=== PATIENT | female | born 1955 | race Caucasian/White ===

== ENCOUNTER 2020-01-02 07:01 | Day surgery (SDC) | payer MEDICARE ==
[2019-12-26 10:59] LABS: BASOPHILS % (AUTO) 0.5 % (0-1); EOSINOPHILS # (AUTO) 0.1 X10'3 (0-0.9); EOSINOPHILS % (AUTO) 1.9 % (0-6); LYMPHOCYTES # (AUTO) 1.7 X10'3 (1.1-4.8); LYMPHOCYTES % (AUTO) 22.5 % (21-51); MEAN CORPUSCULAR HEMOGLOBIN 27.7 PG (27.0-31.0); MEAN CORPUSCULAR HGB CONC 33.6 g/dL (33.0-36.5); MEAN CORPUSCULAR VOLUME 82.5 FL (78-98); MEAN PLATELET VOLUME 7.6 FL (7.4-10.4); MONOCYTES # (AUTO) 0.4 X10'3 (0-0.9); MONOCYTES % (AUTO) 5.3 % (2-12); NEUTROPHILS # (AUTO) 5.3 X10'3 (1.8-7.7); NEUTROPHILS % (AUTO) 69.8 % (42-75); PRE OP HEMATOCRIT 37.5 % (35.0-45.0); PRE OP HEMOGLOBIN 12.6 g/dL (12.0-16.0); PRE OP PLATELET COUNT 284 X10'3 (140-440); RED BLOOD COUNT 4.54 X10'6 (4.20-5.60); RED CELL DISTRIBUTION WIDTH 13.5 % (11.5-14.5)
[2019-12-26 11:16] LABS: ALBUMIN 3.6 G/DL (3.4-5.0); ALBUMIN/GLOBULIN RATIO 0.9 (1.1-1.5); ALKALINE PHOSPHATASE 94 IU/L (46-116); BLOOD UREA NITROGEN 22 MG/DL (7-18); BUN/CREATININE RATIO 19.3 (6.6-38.0); CHLORIDE 108 MMOL/L (99-107); CREATININE 1.14 MG/DL (0.40-0.90); PRE OP ALT 21 U/L (30-65); PRE OP ANION GAP 7 (8-16); PRE OP AST 15 U/L (10-37); PRE OP BILIRUB, TOTAL 0.4 MG/DL (0.0-1.0); PRE OP GLUCOSE 106 MG/DL (70-104); PRE OP POTASSIUM 3.8 MMOL/L (3.4-5.1); PRE OP SODIUM 143 MMOL/L (135-145); TOTAL CARBON DIOXIDE 27.8 MMOL/L (24-32); TOTAL PROTEIN 7.7 G/DL (6.4-8.2); eGFR 48 ML/MIN
[~2020-01-02] VITALS: Ht 162.6 cm; Wt 113.1 kg
[2020-01-02] VITALS (13 sets, daily range): BP systolic 133–154; BP diastolic 61–86
[~2020-01-02 07:01] MED LIST: ACET-2006 PO; DICL100G15 TOP; IBUP-1985 PO; LEVO150T8 PO; PANT40TA4 PO; cefazolin/dext.iso 2gm/100ml 50 ML IV ONE; famotidine 20mg tablet PO ONE; ringers solution, lacted 1,000 ML IV SCH
[2020-01-02] MEDS ORDERED: BUPIVAcaine/PF 2.5 mg/ml (0.25%) 30ml vial ONE (07:15)
[2020-01-02] MEDS ORDERED: ringers solution, lacted 1,000 ML IV SCH (08:08)
[2020-01-02] MEDS ORDERED: proCHLORperazine 10 MG/2 ml inj IV PRN (08:10)
[2020-01-02] MEDS ORDERED: meperidine/PF 25mg/ml syringe IV PRN ×3 (08:10)
[2020-01-02] MEDS ORDERED: ondansetron/PF 4mg/2ml inj IV PRN (08:10)
[2020-01-02] MEDS ORDERED: aprepitant 40mg capsule PO ONE ×2 (09:06→09:15)
[2020-01-02] MEDS ORDERED: sevoflurane 250ml liquid IH ONE (09:32)
[2020-01-02] MEDS ORDERED: MIDAZolam 5mg/5ml vial ONE (09:34)
[2020-01-02] MEDS ORDERED: fentaNYL/PF 50MCG/1 ML 2ML syringe ONE (09:34)
[2020-01-02] MEDS ORDERED: ROPIVAcaine 0.5% (5mg/ml) 30ml vial ONE (09:35)
[2020-01-02] MEDS ORDERED: propofol inj 20 ML IV ONE (09:35)
[2020-01-02] MEDS ORDERED: dexamethasone sod phosphate 4mg/ml inj. ONE (09:36)
[2020-01-02] MEDS ORDERED: LIDOcaine 1%/PF 5ML 10 MG/ML VIAL ONE (09:36)
[2020-01-02] MEDS ORDERED: ondansetron/PF 4mg/2ml inj ONE (10:27)
[2020-01-02] MEDS ORDERED: ROPIVAcaine 0.2%/PF PUMP/bolus 550 ML INTERSCALE SCH (10:42)
[2020-01-02] MEDS ORDERED: ROPIVAcaine 0.2% (10 MG/5 ML) BOLUS INJECTION INTERSCALE PRN (10:45)
[2020-01-02] MEDS ORDERED: rocuronium 10mg/ml inj IV ONE (12:55)
--- NOTE | 2020-01-02 13:07 | NUR ---
Received from OR via , accompanied by Anesthesiologist DR BENSON and report given by Anesthesiolgist. AWAKENS TO VOICE. VITALS STABLE. DRESSING DI. HERNAN PAIN. IMMOBILZER SLING TO LUE.
[2020-01-02] MEDS ORDERED: HYDROcodone/acetaminophen 10/325mg tab PO PRN (13:15)
[2020-01-02] MEDS ORDERED: acetaminophen 325mg tablet PO PRN (14:30)
--- NOTE | 2020-01-02 15:17 | NUR ---
AWAKE AND ORIENTED. VITALS STABLE. DRESSING DI. STATES HEADACHE PAIN IMPROVING. HOME WITH HER FAMILY AT THIS TIME.
== END 2020-01-02 15:17 | disposition home or self-care (01) ==
LOC: PAS 07:01
PROVIDERS: ATTEND Orthopaedic Surgery
DX: M75.121 Complete rotator cuff tear or rupture of right shoulder, not specified as traumatic (principal); M75.41 Impingement syndrome of right shoulder; M75.21 Bicipital tendinitis, right shoulder; M19.011 Primary osteoarthritis, right shoulder; M19.071 Primary osteoarthritis, right ankle and foot; J45.909 Unspecified asthma, uncomplicated; G47.30 Sleep apnea, unspecified; F32.9 Major depressive disorder, single episode, unspecified; F41.9 Anxiety disorder, unspecified; E66.01 Morbid (severe) obesity due to excess calories; Z68.41 Body mass index [BMI] 40.0-44.9, adult; Z11.59 Encounter for screening for other viral diseases; Z79.899 Other long term (current) drug therapy; Z88.5 Allergy status to narcotic agent; Z91.09 Other allergy status, other than to drugs and biological substances; Z88.8 Allergy status to other drugs, medicaments and biological substances; Z90.710 Acquired absence of both cervix and uterus; Z98.890 Other specified postprocedural states; Z90.49 Acquired absence of other specified parts of digestive tract; Z96.653 Presence of artificial knee joint, bilateral; Z90.13 Acquired absence of bilateral breasts and nipples; Z85.3 Personal history of malignant neoplasm of breast; Z86.14 Personal history of Methicillin resistant Staphylococcus aureus infection
CPT/HCPCS: 29824; 29826; 29827; 36415; 64416; 76937; 80053; 82948; 85025; 87081; 93005; C1713; J1100; J2250; J2405; J2704; J2795; J3010; J3490; J7120; J8501; U0003; A4565; A4618; A6449; A7000

== ENCOUNTER 2020-07-13 06:10 | Day surgery (SDC) | payer MEDICARE ==
[2020-07-06 11:36] LABS: BASOPHILS % (AUTO) 0.7 % (0-1); EOSINOPHILS # (AUTO) 0.2 X10'3 (0-0.9); LYMPHOCYTES # (AUTO) 1.5 X10'3 (1.1-4.8); LYMPHOCYTES % (AUTO) 25.5 % (21-51); MEAN CORPUSCULAR HEMOGLOBIN 27.7 PG (27.0-31.0); MEAN CORPUSCULAR HGB CONC 33.6 g/dL (33.0-36.5); MEAN CORPUSCULAR VOLUME 82.5 FL (78-98); MEAN PLATELET VOLUME 7.3 FL (7.4-10.4); MONOCYTES # (AUTO) 0.4 X10'3 (0-0.9); NEUTROPHILS # (AUTO) 3.9 X10'3 (1.8-7.7); NEUTROPHILS % (AUTO) 64.8 % (42-75); PRE OP HEMATOCRIT 36.8 % (35.0-45.0); PRE OP HEMOGLOBIN 12.4 g/dL (12.0-16.0); PRE OP PLATELET COUNT 264 X10'3 (140-440); RED BLOOD COUNT 4.46 X10'6 (4.20-5.60); RED CELL DISTRIBUTION WIDTH 13.3 % (11.5-14.5)
[2020-07-06 11:46] LABS: ALBUMIN 3.6 G/DL (3.4-5.0); ALBUMIN/GLOBULIN RATIO 0.8 (1.1-1.5); ALKALINE PHOSPHATASE 95 IU/L (46-116); BLOOD UREA NITROGEN 18 MG/DL (7-18); CALCIUM 9.2 MG/DL (8.5-10.1); CHLORIDE 105 MMOL/L (99-107); CREATININE 0.82 MG/DL (0.40-0.90); PRE OP ALT 20 U/L (30-65); PRE OP ANION GAP 6 (8-16); PRE OP AST 15 U/L (10-37); PRE OP BILIRUB, TOTAL 0.4 MG/DL (0.0-1.0); PRE OP GLUCOSE 103 MG/DL (70-104); PRE OP POTASSIUM 4.4 MMOL/L (3.4-5.1); PRE OP SODIUM 142 MMOL/L (135-145); TOTAL CARBON DIOXIDE 31.4 MMOL/L (24-32); TOTAL PROTEIN 7.9 G/DL (6.4-8.2); eGFR 70 ML/MIN
[2020-07-13] VITALS (9 sets, daily range): BP systolic 137–150; BP diastolic 69–80
[~2020-07-13] VITALS: Ht 162.6 cm; Wt 113.4 kg
[~2020-07-13 06:10] MED LIST changes: -DICL100G15 TOP; -PANT40TA4 PO; +PANT40TA54 PO; +ceFAZolin inj. 3,000 MG in normal saline 100ml IV soln 100 ML IV ONE; -cefazolin/dext.iso 2gm/100ml 50 ML IV ONE
[2020-07-13] MEDS ORDERED: BUPIVAcaine/PF 2.5mg/ml (0.25%) 10ml vial ONE (06:36)
[2020-07-13] MEDS ORDERED: LIDOcaine 0.5% (5mg/ml) 50ml vial ONE (07:12)
[2020-07-13] MEDS ORDERED: sevoflurane 250ml liquid IH ONE (07:58)
[2020-07-13] MEDS ORDERED: fentaNYL/PF 50MCG/1 ML 2ML syringe ONE (08:03)
[2020-07-13] MEDS ORDERED: ondansetron/PF 4mg/2ml inj ONE (08:11)
[2020-07-13] MEDS ORDERED: dexamethasone sod phosphate 4mg/ml inj. ONE (08:11)
[2020-07-13] MEDS ORDERED: propofol inj 20 ML IV ONE (08:11)
[2020-07-13] MEDS ORDERED: LIDOcaine 2% (20mg/ml) 5ml vial ONE (08:11)
[2020-07-13] MEDS ORDERED: midazolam 2 mg/2 ml injection ONE (08:11)
[2020-07-13] MEDS ORDERED: proCHLORperazine 10 MG/2 ml inj IV PRN (08:25)
[2020-07-13] MEDS ORDERED: ringers solution, lacted 1,000 ML IV SCH (08:25)
[2020-07-13] MEDS ORDERED: hydrALAZINE 20mg/ml inj. IV PRN (08:25)
[2020-07-13] MEDS ORDERED: ondansetron/PF 4mg/2ml inj IV PRN (08:25)
[2020-07-13] MEDS ORDERED: labetalol 20mg/4ml (5mg/ml) syringe IV PRN (08:25)
[2020-07-13] MEDS ORDERED: acetaminophen 1,000mg/100ml IV 100 ML IV PRN (08:25)
[2020-07-13] MEDS ORDERED: meperidine/PF 25mg/ml syringe IV PRN (08:25)
[2020-07-13] MEDS ORDERED: fentaNYL/PF 50MCG/1 ML 2ML syringe IV PRN ×2 (08:25)
--- NOTE | 2020-07-13 08:44 | NUR ---
Received from OR via [facility], accompanied by Anesthesiologist DR RIVAS and report given by Anesthesiologist. PT DROWSY, DENIES PAIN, LEFT HAND W/BIAS DRSG COVERING INCISION CDI, FINGERS PWD, AIR GRINDER 1-2 SECONDS. Addendum: 07/13/20 at 0855 by Leni Rodriges RN Amended: Links added.
--- NOTE | 2020-07-13 10:14 | NUR ---
NAUSEA SUBSIDED, PT ABLE TO AMBULATE SAFELY, D/C INSTRUCTIONS GIVEN AND GONE OVER W/PT WHO VERBALIZED UNDERSTANDING. PT D'CD TO HOME VIA W/C TO PRIVATE VEHICLE W/O INCIDENT. Addendum: 07/13/20 at 1037 by Leni Rodriges RN Amended: Links added.
== END 2020-07-13 10:14 | disposition home or self-care (01) ==
LOC: PAS 06:10
PROVIDERS: ATTEND Orthopaedic Surgery Hand Surgery
DX: G56.02 Carpal tunnel syndrome, left upper limb (principal); J44.9 Chronic obstructive pulmonary disease, unspecified; G47.33 Obstructive sleep apnea (adult) (pediatric); I10 Essential (primary) hypertension; K21.9 Gastro-esophageal reflux disease without esophagitis; G89.29 Other chronic pain; M19.011 Primary osteoarthritis, right shoulder; M19.071 Primary osteoarthritis, right ankle and foot; Z98.890 Other specified postprocedural states; Z85.3 Personal history of malignant neoplasm of breast; Z90.13 Acquired absence of bilateral breasts and nipples; Z90.710 Acquired absence of both cervix and uterus; Z86.14 Personal history of Methicillin resistant Staphylococcus aureus infection; Z86.16 Personal history of COVID-19; Z79.899 Other long term (current) drug therapy; Z88.8 Allergy status to other drugs, medicaments and biological substances; Z91.09 Other allergy status, other than to drugs and biological substances; Z88.5 Allergy status to narcotic agent
CPT/HCPCS: 29848; 36415; 80053; 85025; 93005; J0690; J0780; J1100; J2001; J2250; J2405; J2704; J3010; J3490; A4215; A7000; J7120